=== PATIENT | female | born 1985 | race Caucasian/White ===

== ENCOUNTER 2020-07-03 14:08 | Inpatient (IN) | payer BC ==
[~2020-07-03] VITALS: Ht 165.1 cm; Wt 107.0 kg
[~2020-07-03 14:08] MED LIST: ADIPEX-P37.5 MG PO; AMLODIPINE BESYL5 MG PO; FLAGYL500 MG PO; LEVAQUIN750 MG PO; LISINOPRIL20 MG PO; MACROBID 100 M100 MG PO; MAXALT5 MG PO; TRINESSA TABLE1 EACH PO
[2020-07-03] MEDS ORDERED: ZYRTEC10 MG PO (15:10)
[2020-07-03] MEDS ORDERED: PRENATAL TABLE1 EAC1 PO (15:11)
[2020-07-03 15:40] LABS: BUN/CREATININE RATIO 9 (0-10)
[2020-07-03 15:50] LABS: HEMOGLOBIN 12.5 gm/dl (12.3-15.3); RED BLOOD COUNT 4.16 M/UL (4.00-5.10); WHITE BLOOD COUNT 11.5 K/UL (4.5-11.0)
[2020-07-04 02:39] LABS: HEMOGLOBIN 11.6 gm/dl (12.3-15.3)
[2020-07-05] MEDS ORDERED: DOCUSATE SODIU250 MG PO (08:38)
[2020-07-05] MEDS ORDERED: HYDROCODONE-AC1 EACH PO (08:38)
[2020-07-05] MEDS ORDERED: IBUPROFEN600 MG PO (08:38)
[2020-07-05] MEDS ORDERED: LABETALOL HCL200 MG PO (08:40)
== END 2020-07-05 15:40 | disposition home or self-care (01) | DRG 788 ==
LOC: GENOP 14:08 → OB 14:39
PROVIDERS: Obstetrics & Gynecology; ADMIT Obstetrics & Gynecology
PROC: 10D00Z1 Extraction of Products of Conception, Low, Open Approach (ICD-10-PCS; principal; 2020-07-03 16:23)
DX: O13.4 Gestational [pregnancy-induced] hypertension without significant proteinuria, complicating childbirth (principal); Z3A.37 37 weeks gestation of pregnancy; Z37.0 Single live birth; Z20.822 Contact with and (suspected) exposure to COVID-19
CPT/HCPCS: 36415; 80053; 81001; 82570; 82800; 83615; 84156; 84550; 85014; 85018; 85025; 87635; C9113; J0690; J1885; J2270; J2274; J2405; J2590; J3010; J7120